=== PATIENT | female | born 1965 | race Native Hawaiian/Other Pacific Islander ===

== ENCOUNTER → 2017-06-09 | Day surgery (SDC) | payer OTHER ==
[2016-01-19 09:32] VITALS: BMI 32.1
--- NOTE | 2017-06-09 10:53 | CP.SDSHP ---
Same Day Surgery H & P - History Proposed Procedure: US guided FNA of thyroid nodule Pre-Op Diagnosis: thyroid nodule - Allergies Allergies: Allergies No Known Allergies Allergy (Verified 03/11/15 10:08) - Physical Exam Mental Status: Alert & Oriented x3 Neuro: WNL Heart: WNL - Impression Impression: Pt with a 2 cm complex left thyroid nodule. Plan US guided FNA. Pt. Evaluated Today:Candidate for Anesthesia & Procedure: No - Date & Time Date: 06/09/17 Time: 10:10 Short Stay Discharge - Short Stay Discharge Admitting Diagnosis/Reason for Visit: THYROTOXICOSIS, UNSP WITHOUT THYROTOXIC CRISIS OR Disposition: HOME/ ROUTINE
--- NOTE | 2017-06-09 10:56 | PCM.SURG1 ---
Surgeon's Initial Post Op Note - Surgeon's Notes Surgeon: Sourav Restrepo MD Creel Hand: NONE Type of Anesthesia: Local Pre-Operative Diagnosis: thyroid nodule Operative Findings: 2 CM left thyroid nodule Post-Operative Diagnosis: Thyroid nodule Operation Performed: US guided FNA of complex left thyroid nodule Specimen/Specimens Removed: 25 g FNA x 4 passes Estimated Blood Loss: EBL {In ML}: 0 Blood Products Given: N/A Drains Used: No Drains Post-Op Condition: Good Date of Surgery/Procedure: 06/09/17 Time of Surgery/Procedure: 10:45
--- NOTE | 2017-06-12 14:23 | US ---
PROCEDURE: Date of Procedure: 06/09/2017 PROCEDURE: 1. Ultrasound guided FNA of left thyroid nodule, CPT 71383 2. Ultrasound guidance for FNA, 53826 Medications: 4cc 1% Lidocaine HISTORY: Enlarged left thyroid nodule. TECHNIQUE: Following informed consent and procedure time-out, a limited ultrasound patient's neck confirmed the presence of a 2 cm complex left thyroid nodule which is predominantly solid. After the patient's neck was prepped and draped in the usual sterile fashion, the skin was anesthetized with 1% lidocaine. Ultrasound-guided fine needle aspiration was then performed of the dominant left thyroid nodule. A total of 4 passes were made into the nodule with 25 gauge needle under ultrasound guidance. The FNA specimen was sent for routine pathology. Post biopsy ultrasound showed no hematoma. IMPRESSION: Ultrasound-guided FNA of the dominant left thyroid nodule.
== END | disposition home or self-care (01) ==
LOC: C.SPRAD 08:47
PROVIDERS: ATTEND Radiology Vascular & Interventional Radiology
DX: E05.20 Thyrotoxicosis with toxic multinodular goiter without thyrotoxic crisis or storm (principal)

== ENCOUNTER 2018-04-28 12:14 | Outpatient (CLI) | payer BC | END 2018-04-28 12:15 | disposition home or self-care (01) | LOC: C.LAB 12:14 | DX: E05.90 Thyrotoxicosis, unspecified without thyrotoxic crisis or storm (principal); E04.2 Nontoxic multinodular goiter; R73.09 Other abnormal glucose ==